=== PATIENT | male | born 1945 | race Caucasian/White ===

== ENCOUNTER → 2018-01-19 | Outpatient (CLI) | payer OTHER ==
[~2018-01-19] MED LIST: ASPI81 PO; LEVA500T33 PO; METO50TA PO; PRED20 PO; ROSU5 PO; SLOW50TA PO; duoneb INH
--- NOTE | 2018-01-19 09:51 | RADRPT ---
EXAM DATE: 01/19/2018 9:09 AM EDT AGE/SEX: 72 years / Male INDICATIONS: Pain. CLINICAL DATA: This is the patient's initial encounter. Patient reports that signs and symptoms have been present for 2 weeks and indicates a pain score of 3/10. MEDICAL/SURGICAL HISTORY: Aneurysm, intracranial. Diabetes mellitus type II. Hypertension. CA BG. Carotid endarterectomy. Cholecystectomy. Brain aneurysm coiling. COMPARISON: No prior [facility] exams available for comparison. TECHNIQUE: Multiplanar, multisequence MRI examination of the cervical spine was performed without co ntrast. FINDINGS: Vertebrae: Normal vertebral body height. Homogeneous marrow signal. Alignment: Normal. Cord: Normal configuration and signal. Post Fossa: The cerebellar tonsils are normal in position. C2-C3: Mild broad left paracentral disc protrusion minimally indenting thecal sac. No canal or bisi inal compromise. C3-C4: Mild undulating dorsal disc protrusion slightly asymmetric to the left contributing to mild c anal stenosis and mild asymmetrically left-sided foraminal narrowing. C4-C5: Slight broad central disc osteophyte minimally indenting thecal sac. No canal or foraminal co mpromise. C5-C6: Broad mild dorsal disc protrusion slightly indenting thecal sac. Mild asymmetrically right-si ded foraminal narrowing. C6-C7: Slight broad left paracentral disc protrusion minimally indenting thecal sac. Canal and bisi mariangel satisfactory C7-T1: Slight broad left paracentral disc protrusion slightly indenting thecal sac in the lateral re cess. No significant canal or foraminal compromise. CONCLUSION: Multilevel disc protrusions. No acute bony findings. Electronically signed by: Calin Rubio MD 01/19/2018 9:50 AM EDT
== END ==
LOC: HRAD 06:44
DX: M54.2 Cervicalgia (principal)
CPT/HCPCS: 72141